=== PATIENT | male | born 1980 | race African-American/Black ===

== ENCOUNTER 2023-04-19 20:50 | Emergency (ER) | payer OTHER, SELFPAY ==
[2023-04-19 20:57] VITALS: BP 139/88; PULSE 94; RESP 16; TEMP 36.4; O2SAT 97; BMI 22.4
[2023-04-19 21:30] LABS: MANUAL DIFF FLAG NO
[2023-04-19 21:32] LABS: Basophils Absolute Auto 0.1 X10*3/uL (0.0-0.2); Basophils Percent Auto 0.3 % (0-2); Eosinophils Absolute Auto 0.3 X10*3/uL (0.0-0.4); Eosinophils Percent Auto 1.8 % (0-4); Hematocrit 39.3 % (42.0-52.0); Hemoglobin 13.3 g/dl (14.0-18.0); Imm Gran Abs Auto 0.04 X10*3/uL (0.00-0.03); Imm Gran Pct Auto 0.3 % (0.0-0.4); Lymphocytes Percent Auto 26.7 % (20-40); Mean Corpuscular HGB Conc 33.8 g/dl (31.0-36.0); Mean Corpuscular Hemoglobin 29.4 pg (27.0-33.0); Mean Corpuscular Volume 86.9 fL (80.0-98.0); Mean Platelet Volume 9.1 fL (9.4-12.4); Monocytes Absolute Auto 1.2 X10*3/uL (0.1-1.2); Monocytes Percent Auto 7.8 % (2-11); Neutrophils Absolute Auto 9.4 x10*3/uL (2.0-8.3); Neutrophils Percent Auto 63.1 % (45-73); Platelet Count 245 X10*3/uL (160-400); Red Blood Count 4.52 X10*6/uL (4.60-5.80); Red Cell Distribution Width 12.3 % (11.0-16.0); White Blood Count 14.8 X10*3/uL (4.8-10.8)
[2023-04-19 21:46] LABS: Alanine Aminotransferase 11 U/L (0-40); Albumin Level 4.2 g/dL (3.5-5.0); Alkaline Phosphatase 60 U/L (39-117); Anion Gap 11 (12-20); Aspartate Amino Transferase 13 U/L (5-37); Bilirubin Total 0.4 mg/dL (0.0-1.0); Blood Urea Nitrogen 13 mg/dL (9-16); Calcium 9.4 mg/dL (8.4-10.2); Carbon Dioxide 30 mmol/L (22-29); Chloride 107 mmol/L (96-108); Creatinine Clr Calc Pharmacy 102.5; Estimated Glomerular Filt Rate > 60; Glucose Random 87 mg/dL (60-115); Potassium 4.3 mmol/L (3.3-5.1); Sodium 144 mmol/L (135-145); Total Protein 6.7 g/dL (6.5-8.0)
--- NOTE | 2023-04-19 22:44 | PC.NURSE ---
Pt ca&ox3, no signs of distress. Pt reports 3/10 pain on left side of face, jaw, ear, and neck. Pt states I thought it was an ingrown hair and I tried to pop it and then I woke up like this. Pt with family at bedside. wctm.
--- NOTE | 2023-04-19 22:47 | ED.GENADULT ---
HPI - General Adult General Chief complaint: Skin/Abscess/Foreign Body Stated complaint: face swollen Time Seen by Provider: 04/19/23 22:41 Source: patient Mode of arrival: ambulatory Limitations: no limitations History of Present Illness HPI narrative: Patient is a 43-year-old male with no significant past medical history presenting with swelling to his right cheek since this morning. Patient reports 2 days ago he noticed an ingrown hair to the area. He applied warm compresses and did have a small amount of purulent drainage. He denies any fevers. He denies any dental pain. He reports history of frequent ingrown hairs on his face. MD complaint: facial abscess Onset (ago): hour(s) Location: face Radiation: non-radiation Severity: moderate Quality: aching Exacerbating factors: other (palpation) Associated symptoms: denies other symptoms Treatments prior to arrival: heat therapy Related Data Previous Rx's Medication Instructions Recorded cephalexin 500 mg capsule 500 mg PO QID #27 caps 04/19/23 doxycycline hyclate 100 mg capsule 100 mg PO BID #13 caps 04/19/23 Allergies Allergy/AdvReac Type Severity Reaction Status Date / Time No Known Allergies Allergy Verified 04/19/23 20:57 Review of Systems Review of Systems: As per HPI. Yes all other systems are reviewed and are negative Constitutional: Constitutional: Reports as per HPI PMF Social History Social History Smoked in Last 30 Days: Yes Use of substances other than those prescribed or required for medical reasons: No Advance Directives: No Advance Directives Information Provided: No Physical Exam ED Vital Signs: Vital Signs - 24 hr 04/19/23 20:57 Temperature 97.6 F Pulse Rate 94 Respiratory Rate 16 Blood Pressure 139/88 Pulse Oximetry 97 Oxygen Delivery Method Room Air BMI result Body Mass Index 22.4 Vital signs have been reviewed and appear to be correct. Blood pressure normal. Heart rate normal. Respiratory rate normal. Temperature normal. Oxygen saturation normal. Const General: cooperative, healthy appearing and no acute distress Orientation/consciousness: oriented to person, oriented to place, oriented to time and patient oriented x3 Limitations: no limitations HENMT Head: Yes normocephalic and Yes atraumatic Head images: 1. abscess Ears: external ears normal General nose exam: Normal external nose present Face and sinus: Yes other Mouth: Normal oral and palatal mucosa present, oropharynx normal and moist mucous membranes Teeth and gingiva: dentition normal Throat: Yes uvula midline Eyes Pupils: Equal, round and reactive pupils present Neck Neck: Yes normal visual inspection and Yes supple Resp Effort & Inspection: normal respiratory effort and able to speak in complete sentences Auscultation: clear to auscultation bilaterally Cardio Rate: regular rate Rhythm: regular rhythm Heart sounds: S1 normal heart sound present and S2 normal heart sound present GI Palpation (GI): Soft to palpation and nontender Auscultation: normoactive bowel sounds Skin General skin exam: elasticity normal and turgor normal Lesions: lesion noted pustule right mid cheek size (3-4cm), color flesh-colored, consistency firm, surface indurated and tender Neuro General: oriented to person, oriented to place, oriented to time, patient oriented x3, moves all extremities, no focal motor deficits and CN's II-XI intact bilaterally Cranial nerves: Yes Equal, round and reactive pupils present Cognition (Neuro): normal cognition Extrem General: Yes full ROM, Yes no pedal edema and Yes no calf tenderness Psych Mental Status: mental status grossly normal Affect: normal affect Thought process: Normal thought process present Medications Administered Discontinued Medications Generic Name Dose Route Start Last Admin Trade Name Freq PRN Reason Stop Dose Admin Cephalexin HCl 500 mg 04/19/23 23:01 04/19/23 23:15 Cephalexin 500 Mg Capsule PO 04/19/23 23:02 500 mg ONCE ONE Administration Doxycycline Monohydrate 100 mg 04/19/23 23:01 04/19/23 23:15 Doxycycline Monohydrate 100 Mg Capsule PO 04/19/23 23:02 100 mg ONCE ONE Administration Lidocaine HCl 5 ml 04/19/23 22:57 04/19/23 23:15 Lidocaine Hcl 1 % Mpf 5 Ml Vial INFILTRATI 04/19/23 22:58 5 ml ONCE ONE Administration Procedures Abscess I/D Site: face Side (if applicable): right Sedation/analgesia: none Local Anesthetic: lidocaine 1% Amount of anesthesia used (mL): 1 Technique: needle aspiration Amount of fluid expressed (mL): 0 Sent for culture/gram staining?: No Irrigation: No Packing used?: none Medical Decision Making Medical Decision Making MDM Narrative: Patient is a 43-year-old male with no significant past medical history presenting with swelling to his right cheek since this morning. On exam patient is awake, A+Ox3, nontoxic appearing, VS WNL, afebrile, firm pustule to right cheek with central induration and surrounding soft tissue swelling. No erythema or calor. No gingival swelling or abscess. Mild leukocytosis on labs. Attempted drainage as per procedure note. No drainage aspirated, patient tolerated procedure well. Patient medicated with first dose of doxycycline and cephalexin in ED now. Prescribed doxycycline and cephalexin, instructed patient to continue applying warm compresses several times daily. Instructed patient to avoid squeezing the area for drainage. Return precautions discussed at bedside. Differential Diagnosis Differential Diagnoses: The differential diagnosis associated with the presentation includes abscess, cellulitis, dental abscess Lab Data MDM Lab Attestation statement: I reviewed the patient's lab results. 04/19/23 21:26 04/19/23 21:26 Labs: Lab Results 04/19/23 04/19/23 Range/Units 21:26 21:26 WBC 14.8 H (4.8-10.8) X10*3/uL RBC 4.52 L (4.60-5.80) X10*6/uL Hgb 13.3 L (14.0-18.0) g/dl Hct 39.3 L (42.0-52.0) % MCV 86.9 (80.0-98.0) fL MCH 29.4 (27.0-33.0) pg MCHC 33.8 (31.0-36.0) g/dl RDW 12.3 (11.0-16.0) % Plt Count 245 (160-400) X10*3/uL MPV 9.1 L (9.4-12.4) fL Immature Gran % (Auto) 0.3 (0.0-0.4) % Neut % (Auto) 63.1 (45-73) % Lymph % (Auto) 26.7 (20-40) % [place] % (Auto) 7.8 (2-11) % Eos % (Auto) 1.8 (0-4) % Baso % (Auto) 0.3 (0-2) % Lymph # (Auto) 4.0 (1.2-4.9) X10*3/uL [place] # (Auto) 1.2 (0.1-1.2) X10*3/uL Eos # (Auto) 0.3 (0.0-0.4) X10*3/uL Baso # (Auto) 0.1 (0.0-0.2) X10*3/uL Abs Immat Gran (auto) 0.04 H (0.00-0.03) X10*3/uL Absolute Neuts (auto) 9.4 H (2.0-8.3) x10*3/uL Absolute Nucleated RBC 0.000 (0.0-0.012) X10*3/uL Nucleated RBC % (auto) 0.0 (0.0-0.2) /100WBC Sodium 144 (135-145) mmol/L Potassium 4.3 (3.3-5.1) mmol/L Chloride 107 (96-108) mmol/L Carbon Dioxide 30 H (22-29) mmol/L Anion Gap 11 L (12-20) BUN 13 (9-16) mg/dL Creatinine 0.87 (0.5-1.4) mg/dL Estim Creat Clear Calc 102.5 Estimated GFR > 60 Random Glucose 87 (60-115) mg/dL Calcium 9.4 (8.4-10.2) mg/dL Total Bilirubin 0.4 (0.0-1.0) mg/dL AST 13 (5-37) U/L ALT 11 (0-40) U/L Alkaline Phosphatase 60 (39-117) U/L Total Protein 6.7 (6.5-8.0) g/dL Albumin 4.2 (3.5-5.0) g/dL External Record Review External record reviewed: Inpatient record, Office record and Outpatient record Prescription Management I considered prescription management with: Antibiotic Discharge Plan Discharge Clinical Impression: Abscess of skin or subcutaneous tissue Patient Disposition: Home, Self-Care Instructions: Abscess (ED) Additional Instructions: You were evaluated in the ER for an abscess. Please keep the area surrounding the abscess clean and dry. You were given a prescription for two antibiotics, please take the antibiotics as directed for the full course of the medication. You should also apply warm compresses to the area several times daily. You should perform a skin check of the area daily. If the abscess progresses you may have to have the abscess incised and drained. You can use Tylenol or ibuprofen per package directions as needed for pain. If necessary, you can alternate these medications so that you take one medication every 3 hours. For instance, at noon take ibuprofen, then at 3:00 p.m. take Tylenol, then at 6:00 p.m. take ibuprofen. Please schedule an appointment with your primary care physician as soon as possible for follow-up. Return to the emergency department if you experience fevers greater than 100.4? F, increased in area of redness or swelling, increasing amount of discharge from the area, increased tenderness around the area, or any other concerning symptoms. Prescriptions: New doxycycline hyclate 100 mg capsule 100 mg PO BID Qty: 13 0RF cephalexin 500 mg capsule 500 mg PO QID Qty: 27 0RF
--- NOTE | 2023-04-19 22:50 | PC.NURSE ---
Provider in with pt.
[2023-04-19] MEDS: Lidocaine HCl 1 % MPF 5 ML VIAL INFILTRATI (23:15)
[2023-04-19] MEDS: cephALEXin 500 MG CAPSULE PO (23:15)
[2023-04-19] MEDS: Doxycycline Monohydrate 100 MG CAPSULE PO (23:15)
--- NOTE | 2023-04-19 23:19 | PC.NURSE ---
Pt medicated per mar. Provider in with pt. Family member remains at bedside. wctm.
[2023-04-19 23:32] VITALS: BP 128/85; PULSE 71; RESP 12; TEMP 36.9; O2SAT 96
== END 2023-04-19 23:40 | disposition home or self-care (01) ==
PROVIDERS: Emergency Provider Emergency Medicine Emergency Medical Services; PCP Internal Medicine
DX: L02.01 Cutaneous abscess of face (principal)
CPT/HCPCS: 10060; 36415; 80053; 85025; 99284

== ENCOUNTER 2023-11-10 14:50 | Emergency (ER) | payer OTHER, SELFPAY | END 2023-11-10 15:36 | disposition left against medical advice (07) | PROVIDERS: Emergency Provider Emergency Medicine; PCP Internal Medicine | DX: R07.9 Chest pain, unspecified (principal) | CPT/HCPCS: 93005; 99282; 99283 ==

== ENCOUNTER → 2023-11-10 14:52 | Outpatient (BNV) | payer SELFPAY | PROVIDERS: Emergency Provider Emergency Medicine; PCP Internal Medicine; Visit Provider Internal Medicine Cardiovascular Disease | DX: R07.9 Chest pain, unspecified (principal) | CPT/HCPCS: 93010 ==